=== PATIENT | male | born 1955 | race Hispanic/Latino ===

== ENCOUNTER 2017-07-15 07:47 | Emergency (ER) | payer BC, OTHER ==
[~2017-07-15 07:47] MED LIST: AMLO5TAB2 PO; ATOR40TA71 PO; BENA40TA9 PO; FURO40TA5 PO; HYDR12.530 PO; INSLAN SQ; LEVO500T2 PO; LIRA0.6P SQ; OSEL75 PO; PIOG45TA64 PO; ROSU20TA PO; SITA1TAB6 PO
[2017-07-15] MEDS ORDERED: KETOROLAC TROMETHAMINE 30MG/ML ONE (08:14)
[2017-07-15] MEDS ORDERED: ORPHENADRINE CITRATE 30 MG/ML ML ONE (08:14)
[2017-07-15] MEDS ORDERED: DEXAMETHASONE SOD PHOSPHATE 10MG/ML 1ML VIAL ONE (08:14)
[2017-07-15] MEDS ORDERED: ACETAMINOPHEN-CODEINE 300/30MG TAB ONE (09:28)
== END 2017-07-15 09:41 | disposition home or self-care (01) ==
LOC: EDH 07:47
DX: M54.31 Sciatica, right side (principal); E11.9 Type 2 diabetes mellitus without complications; E78.5 Hyperlipidemia, unspecified; I10 Essential (primary) hypertension; Z79.4 Long term (current) use of insulin
CPT/HCPCS: 72100; 96374; 96375; 99285; J1100; J1885; J2360

== ENCOUNTER 2023-04-09 16:28 | Emergency (ER) | payer BC ==
[~2023-04-09] VITALS: Ht 182.9 cm; Wt 142.0 kg
[~2023-04-09 16:28] MED LIST changes: +AMLO-257 PO; -AMLO5TAB2 PO; -BENA40TA9 PO; +BENA40TA92 PO; -ROSU20TA PO; +ROSU20TA23 PO
[2023-04-09 17:32] LABS: BASOPHILS # (AUTO) 0.06 K/uL (0.00-0.20); BASOPHILS % (AUTO) 0.7 % (0.0-5.0); EOSINOPHILS # (AUTO) 0.09 K/uL (0.00-0.70); HEMATOCRIT 50.7 % (42-54); IMMATURE GRANULOCYTE ABSOLUTE 0.11 K/uL (0-1); LYMPHOCYTES # (AUTO) 1.4 K/uL (1.0-4.8); LYMPHOCYTES % (AUTO) 15.7 % (21.0-51.0); MEAN CORPUSCULAR HEMOGLOBIN 29.3 pg (27.0-33.0); MEAN CORPUSCULAR HGB CONC 32.3 g/dL (32.0-36.0); MEAN CORPUSCULAR VOLUME 90.5 fL (79-99); MONOCYTES # (AUTO) 0.8 K/uL (0.1-1.0); MONOCYTES % (AUTO) 8.7 % (3.0-13.0); NEUTROPHILS # (AUTO) 6.3 K/uL (1.8-7.7); NEUTROPHILS % (AUTO) 72.6 % (40.0-77.0); PLATELET COUNT (AUTO) 225 K/uL (130-400); RED CELL DISTRIBUTION WIDTH 13.5 % (11.0-15.5); WHITE BLOOD COUNT (AUTO) 8.6 K/uL (4.8-10.8)
[2023-04-09 17:34] LABS: APPEARANCE,URINE CLOUDY (CLEAR); BILIRUBIN,URINE NEGATIVE (NEGATIVE); COLOR,URINE BROWN (YELLOW); GLUCOSE, URINE (UA) NEGATIVE (NEGATIVE); KETONES,URINE 5 mg/dL (NEGATIVE); LEUKOCYTE ESTERASE ,URINE 25 Leu/uL (NEGATIVE); NITRATE,URINE NEGATIVE (NEGATIVE); OCCULT BLOOD,URINE LARGE (NEGATIVE); PROTEIN,URINE 50 mg/dL (NEGATIVE); UROBILINOGEN,URINE 0.2 mg/dL (0.2-1.0)
[2023-04-09 17:43] LABS: CREATININE 1.2 mg/dL (0.5-1.5)
[2023-04-09 17:52] LABS: ADD UA MICROSCOPIC YES
[2023-04-09 17:54] LABS: BACTERIA,URINE RARE /HPF (None Seen); MUCUS,URINE RARE LPF (None Seen); RBC,URINE TNTC /HPF (0-1); UNCLASSIFIED CRYSTAL 30 /HPF (None Seen)
[2023-04-09] MEDS: CEFTRIAXONE 1G VIAL IVPB ONE (18:20)
[2023-04-09] MEDS ORDERED: CEPH500B PO (18:29)
[2023-04-09] MEDS ORDERED: TAMS-1 PO (18:29)
[2023-04-09 18:54] VITALS: BP 121/64; PULSE 60; RESP 14; O2SAT 99
== END 2023-04-09 18:53 | disposition home or self-care (01) ==
LOC: EDH 16:28
DX: N39.0 Urinary tract infection, site not specified (principal); I11.0 Hypertensive heart disease with heart failure; I50.9 Heart failure, unspecified; E11.9 Type 2 diabetes mellitus without complications; E78.00 Pure hypercholesterolemia, unspecified; Z79.899 Other long term (current) drug therapy; Z98.890 Other specified postprocedural states
CPT/HCPCS: 99284; 96374; 80048; 85025; 87088; 81001; 36415; 51702; J0696

== ENCOUNTER → 2024-12-31 | Outpatient (CLI) | payer BC, MEDICARE ==
[~2024-12-31] MED LIST changes: +CEPH500B PO; +TAMS-55 PO
--- NOTE | 2025-01-01 17:28 | HMCIMG ---
EXAM: CR Lumbar Spine, 5 View. CLINICAL HISTORY: LOW BACK PAIN COMPARISON: None provided. FINDINGS: BONES: No acute fracture or aggressive appearing osseous lesion. ALIGNMENT: Grade I anterolisthesis of L4 over L5 vertebra. No scoliosis. DISCS / DEGENERATIVE CHANGES: Spondylosis with mildly reduced disc spaces from L3 to L5 level SOFT TISSUES: The soft tissues are unremarkable. IMPRESSION: No acute lumbar spine abnormality evident. Grade I anterolisthesis of L4 over L5 vertebra. Spondylosis with mildly reduced disc spaces from L3 to L5 level /[place]
== END | disposition home or self-care (01) ==
LOC: RAH 15:08
PROVIDERS: ATTEND Physical Medicine & Rehabilitation
DX: M47.816 Spondylosis without myelopathy or radiculopathy, lumbar region (principal); M43.16 Spondylolisthesis, lumbar region; M48.062 Spinal stenosis, lumbar region with neurogenic claudication; M21.372 Foot drop, left foot
CPT/HCPCS: 72114